=== PATIENT | male | born 1950 | race Caucasian/White ===

== ENCOUNTER 2023-11-28 08:42 | Emergency (ER) | payer MEDICARE, OTHER, SELFPAY ==
[2023-11-28 08:51] VITALS: BP 151/76; PULSE 79; RESP 20; TEMP 37.2; O2SAT 100
[2023-11-28 08:55] VITALS: BP 151/76; PULSE 79; RESP 20; TEMP 37.2; O2SAT 100
--- NOTE | 2023-11-28 08:58 | ED.GENADULT ---
HPI - General Adult General Chief complaint: Unspecified Stated complaint: left ankle gout Time Seen by Provider: 11/28/23 08:58 Source: patient, RN notes reviewed and old records reviewed Mode of arrival: ambulatory Limitations: no limitations History of Present Illness HPI narrative: 73 year old male who presents to [facility] care with complaints of left ankle pain, redness, and swelling for the past 2-3 days. He reports that he feels that it is gout with previous history of gout. Patient reports that he has an allergy to a medication that is used to treat gout but he does not know name. Patient reports that he has taken Advil for his discomfort.Patient denies any injury to his left ankle or foot. MD complaint: 2-3 days Onset (ago): day(s) (2-3) Location: left and lower extremity (ankle) Severity scale (1-10): 9 Quality: aching and other (throbbing) Treatments prior to arrival: NSAID Related Data Home Medications Medication Instructions Recorded Confirmed amlodipine 10 mg-benazepril 40 mg cap 11/28/23 capsule atorvastatin 40 mg tablet mg 11/28/23 clopidogrel 75 mg tablet mg 11/28/23 metoprolol succinate 100 mg mg PO 11/28/23 tablet,extended release 24 hr Allergies Allergy/AdvReac Type Severity Reaction Status Date / Time No Known Allergies Allergy Mild Verified 10/26/07 10:26 Review of Systems Review of Systems: CONSTITUTIONAL: Denies fever, chills, or sweats. EYES: Denies visual changes, redness, or discharge. ENT: Denies rhinorrhea, congestion, sore throat, or otalgia. CARDIOVASCULAR: Denies chest pain, palpitations, or edema. RESPIRATORY: Denies cough or dyspnea. GASTROINTESTINAL: Denies abdominal pain, nausea, vomiting, or diarrhea. GENITOURINARY: Denies dysuria or hematuria. SKIN: Denies rash or itching. MUSCULOSKELETAL: Denies back pain,positive for left ankle joint pain with redness swelling and warmth, or myalgia. NEUROLOGIC: Denies headache, numbness, or weakness. PSYCHIATRIC: Denies anxiety or depression. 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 There is no relevant family history pertinent to the presenting complaint Exam Narrative: GENERAL: Well-appearing, well-nourished, and in no acute distress. HEAD: Normocephalic, atraumatic. EYES: PERRLA and EOMI. ENT: Nares clear, no rhinorrhea or epistaxis. Mucous membranes moist. NECK: Supple.no lymphadenopathy CHEST: Clear to auscultation. No respiratory distress.SAO2 100% on room air HEART: Regular rate and rhythm. No murmur heard. Normal peripheral pulses. ABDOMEN: Soft, nontender, nondistended, normal active bowel sounds. EXTREMITIES: Normal range of motion. No edema.Exception noted to left ankle with some redness, warmth, and swelling noted with pain. Patient has palpable pedal pulse to his left foot with some increased pain to ankle with movement and ambulation. Patient reports no tingling or numbness to his left foot or toes. SKIN: Warm, dry, no rash. NEURO: No focal deficits. Alert and oriented x3. Course Course Emergency Course: Patient is aware of diagnosis, understands and agrees to treatment plan.? Anticipatory guidance give
== END 2023-11-28 09:17 | disposition home or self-care (01) ==
PROVIDERS: Emergency Provider Registered Nurse; PCP Physician Assistant
DX: M10.9 Gout, unspecified (principal); Z87.891 Personal history of nicotine dependence; Z86.73 Personal history of transient ischemic attack (TIA), and cerebral infarction without residual deficits; E78.00 Pure hypercholesterolemia, unspecified; I10 Essential (primary) hypertension
CPT/HCPCS: 99203; G0463

== ENCOUNTER 2024-10-06 09:10 | Emergency (ER) | payer MEDICARE, OTHER, SELFPAY ==
[2024-10-06 09:14] VITALS: BP 153/56; PULSE 75; RESP 20; TEMP 37.3; O2SAT 94
--- NOTE | 2024-10-06 09:17 | ED.URI ---
HPI - URI/Sore Throat General Chief Complaint: Upper Respiratory Infection Stated Complaint: can hardly swallow/sore throat Time Seen by Provider: 10/06/24 09:28 Source: patient and RN notes reviewed Mode of arrival: ambulatory Limitations: no limitations History of Present Illness HPI Narrative: 74-year-old male presents with concern for 5 day history of sore throat and productive cough. He denies fever but reports chills. He denies taking any medication for symptoms. Denies sinus congestion, drainage. MD elicited complaint: cough and sore throat Related Data Home Medications ?Medication ?Instructions ?Recorded ?Confirmed ?Last Taken ?Type amlodipine 10 mg-benazepril 40 mg cap 11/28/23 Unknown History capsule atorvastatin 40 mg tablet mg 11/28/23 Unknown History clopidogrel 75 mg tablet mg 11/28/23 Unknown History metoprolol succinate 100 mg mg PO 11/28/23 Unknown History tablet,extended release 24 hr Allergies Allergy/AdvReac Type Severity Reaction Status Date / Time No Known Allergies Allergy Mild Verified 10/26/07 10:26 Review of Systems Review of Systems: CONSTITUTIONAL: Denies malaise, sweats, or fever. Reports chills EYES: Denies visual changes, redness, or discharge. ENT: Denies rhinorrhea, congestion, sinus pain, otalgia. Reports sore throat. CARDIOVASCULAR: Denies chest pain, palpitations, or edema. RESPIRATORY: Reports productive cough. Denies dyspnea. GASTROINTESTINAL: Denies abdominal pain, nausea, vomiting, diarrhea SKIN: Denies rash or itching. MUSCULOSKELETAL: Denies myalgia. NEUROLOGIC: Denies headache. 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 Elevated cholesterol Hypertension CVA (cerebral vascular accident) Social History Social History (Updated 11/29/23 @ 08:12 by Estrella nAtoine NP) Smoking packs per day: 1 Smoking cigarettes per day: 20.0 Years smoked: 30 Smoking pack-years: 30.00 Smoking status: Former smoker Additional smoking assessment comments: quit 10years ago Alcohol intake: current Alcohol use details: social Substance use type: does not use Living arrangements: with family Gender identity (if verbalized by the patient): Male Comments At time of signature, agree with nursing past medical, surgical, social and family history. There is no relevant family history pertinent to the presenting complaint Exam Narrative: GENERAL: Well-appearing, well-nourished, and in no acute distress. HEAD: Normocephalic EYES: PERRLA, conjunctivae clear ENT: Nares clear. Mucous membranes moist. TM pearly leslie with sharp light reflex bilaterally; no tragal tenderness. Oropharynx not erythematous without lesions. Tonsils not enlarged and without exudate, no drooling, no hoarseness, no trismus, uvula midline. NECK: Supple. No lymphadenopathy CHEST: Scattered rhonchi, breath sounds equal. No wheezing, rales, or stridor. No respiratory distress, speaks in full sentences. HEART: Regular rate and rhythm. No murmur heard. SKIN: Warm, dry, no rash. NEURO: Alert and oriented x3. PSYCH: Normal mood and affect Course Course Emergency Course: Patient is aware of diagnosis, understands and agrees to treatment plan. Anticipatory guidance given. Patient agrees to follow-up as directed and is aware of reasons to seek care at the emergency department. Portions of this record may have been created with voice recognition software Level of Care: Express Care Visit Vital Signs Vital signs: Reviewed. MDM - URI/Sore Throat MDM Narrative Medical decision making narrative: Differential diagnosis considered: Melissa virus, strep pharyngitis, allergic rhinitis, upper respiratory tract infection, sinusitis, rhinosinusitis, nasopharyngitis. viral pharyngitis, otitis media, otitis externa, pneumonia, bronchitis, viral cough syndrome, viral syndrome, and influenza. Exam findings show no acute concerns or changes; patient is non-toxic appearing and is in no distress. Patient is appropriate for outpatient treatment and follow-up. Lab Data Attestation: I reviewed the patient's lab results. Critical Care Time Critical Care Time Critical Care Time: No Discharge Plan Discharge Clinical Impression: Lower respiratory tract infection Patient Disposition: Home Condition: Stable Instructions: Antibiotic Form, Acute Cough (ED) Additional Instructions: 1) Please follow-up with your primary care doctor in the next 1-2 days. 2) If you have any worsening of symptoms or any other urgent concerns please go to the ER. 3) Please take medications as prescribed and continue taking your home medications as usual. 4) Please read and follow information included in discharge instructions. Patient Language: Divehi Prescriptions: New azithromycin [Zithromax Z-Matthew] 250 mg tablet See Rx Instructions .ROUTE .COMPLEX Qty: 6 0RF Rx Instructions: take 500 mg today (day 1), then 250 mg for 4 days (days 2-5) methylprednisolone [Medrol (Matthew)] 4 mg tablets,dose pack See Rx Instructions .ROUTE .COMPLEX Qty: 21 0RF Rx Instructions: orally per package directions No Action atorvastatin 40 mg tablet metoprolol succinate 100 mg tablet extended release 24 hr PO clopidogrel 75 mg tablet amlodipine-benazepril 10-40 mg capsule Follow-up/Referrals: Varun,JUAN [place] [Primary Care Provider] - Time of Disposition: 09:38
[2024-10-06 09:29] LABS: EDSTREPNEGPOS1 Negative (Negative)
== END 2024-10-06 09:42 | disposition home or self-care (01) ==
PROVIDERS: Emergency Provider Nurse Practitioner; PCP Physician Assistant
DX: J22 Unspecified acute lower respiratory infection (principal); I10 Essential (primary) hypertension; Z86.73 Personal history of transient ischemic attack (TIA), and cerebral infarction without residual deficits; Z87.891 Personal history of nicotine dependence
CPT/HCPCS: 87081; 87880; 99213; G0463